=== PATIENT | female | born 1975 | race Caucasian/White ===

== ENCOUNTER → 2018-02-28 08:50 | Outpatient (CLI) | payer OTHER, SELFPAY ==
[2018-03-04 11:49] LABS: HPV HC, High Risk Negative (Negative)
[2018-03-04 12:50] LABS: HPV Reflexed? NOT INDICATED
--- OUTSIDE RECORDS SUMMARY | 2018-04-23 10:57 | XMS RPT_ITS ---
:1975 Author Organization [facility] Care Team Providers Name Role Phone EDMAR CHURCH, MS. RISA Way Attending Unavailable ELÍAS GILES, DR. CREWS Primary Care Unavailable Izabela Chen Attending Unavailable PROBLEMS PROBLEMS DATE TYPE CONDITION / CODE ATTENDING STATUS SOURCE 02/28/2018 Unknown Z12.4 - Izabela Chen Active Anna Encounter for Community screening for Hospital malignant Repository neoplasm of cervix / Z12.4(ICD-10) PROCEDURES PROCEDURES No Procedure Records FoundRESULTS RESULTS PAP I-G W/RFX HRHPV Collected: 02/28/2018 Status: F Source: ANNA 8:30 AM [facility] REPOSITORY Order Comment: CYTOLOGY INFORMATION: - CLINICAL INFORMATION: - DATE LMP/MENOPAUSE: 01-18-18 LMP - COLLECTION VIAL: Thin Prep Vial - 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 of containers..01 ThinPrep Vial TYPE CODE TESTS RESULT OUT OF REFERENCE UNITS RANGE LAB L7400.0800 . High DIAGN Comment Result Comment: EPITHELIAL CELL ABNORMALITY. ATYPICAL SQUAMOUS CELLS OF UNDETERMINED SIGNIFICANCE. LAB L7400.0900 . Normal ADEQ Comment Result Comment: Satisfactory for evaluation. Endocervical and/or squamous metaplastic cells (endocervical component) are present. LAB L7400.1400 . Normal PERFORM Comment Result Comment: Sobia Patterson, Spring Production Supervisor (ASCP) LAB L7400.1700 . Normal SIGN Comment Result Comment: Tammie Ramos MD, Pathologist LAB L7400.1720 . Normal Path prov. Comment ICD9 Result Comment: R87.610 LAB L7400.2575 . Normal TEST METHOD Comment Result Comment: This liquid based ThinPrep(R) pap test was screened with the use of an image guided system. LAB L7400.2600 . Normal . COMM LAB L7400.2700 . Normal PAPSMR Comment Result Comment: The Pap smear is a screening test designed to aid in the detection of premalignant and malignant conditions of the uterine cervix. It is not a diagnostic procedure and should not be used as the sole means of detecting cervical cancer. Both false-positive and false-negative reports do occur. LAB L7400.2800 . Normal HPV RFLX Comment Result Comment: See below for HPV testing results. LAB L7400.2900 Negative Normal HPV Negative HC,HGH RISK Result Comment: This high-risk HPV test detects thirteen high-risk types (16/18/31/33/35/39/45/51/52/56/58/59/68) without differentiation. Performed at: - [facility] [id number] [place] [employer] Operator: Sussy Santana MD, Phone: [phone] Performed at: = - [facility] [address] [id number] [place] [employer] Operator: Sussy Santana MD, Phone: [phone] Performed By: #### L7400.0350 #### [facility] (refer to report for specific site) refer to report for address and phone number MA MAMMOGRAM SCREENING Observed: 11/12/2017 Status: F Source: [facility] W/TESSA 8:30 AM [facility] REPOSITORY ORIGINAL FROM: [address] [address] PROCEDURE FOR: AMARI PONCE [id number] [facility] [place] [address] Home: PID#: [id number] Exam#: [id number] : 1975 Age: 42 TO: RISA 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. The tissue of both breasts is heterogeneously dense. Current study was also evaluated with a Computer Aided Detection (CAD) system. No significant masses, calcifications, or other findings are seen in either breast. There has been no significant interval change. IMPRESSION: NEGATIVE There is no mammographic evidence of malignancy. A 1 year screening mammogram is recommended. MARIS STEWART MD ab/penrad:11/12/2017 16:27:37 Production Recovery Operator: SUNSHINE AGUERO (Tobias)(M), [facility] letter sent: Normal BI-RADS 1&2 Mammogram BI-RADS: 1 Negative ALLERGIES ALLERGIES No Allergies Records FoundENCOUNTERS ENCOUNTERS ADMIT/DISCHARGE ACCOUNT NUMBER ADMITTING ENCOUNTER LOCATION SOURCE CLASS 02/28/[id number] [facility] ding:[facility] Repository 11/12/2017/11/13/19 [id number] Ambulatory [address] ding:[facility] Repository PAYERS PAYERS ENCOUNTER GUARANTOR PAYER SUBSCRIBER SOURCE 02/28/2018 Vicky Primary AMARIGisele [id number] [facility] RICARDA: [facility] icy Number: [id number] [facility] [place] [id number] Repository [address]Xtt: 330 Date:[phone] ([place]) [address], [place] [address]PK: 02/28/2018 Secondary NOT GIVENUNK Anna Insurance:SELF PAY Community [facility] Number: Effective Repository Date:2018-02-28 11/12/2017 AMARI A [facility] [id number] Number: [id number] Repository [facility] [id number] [address] [facility] [place] Date:2017-11-04 [place] [address]~[facility] [id number]: [email or web address]: Name:CPO AR[place] [address], [place] ()Tel: [phone] (TO)Tel: [phone]: (wp) [phone] (wp) [phone]
== END ==
PROVIDERS: PCP Internal Medicine; Visit Provider Obstetrics & Gynecology
DX: Z12.4 Encounter for screening for malignant neoplasm of cervix (principal)
CPT/HCPCS: 88175; G0145